=== PATIENT | female | born 1950 | race African-American/Black ===

== ENCOUNTER 2017-09-14 10:50 | Emergency (ER) | payer OTHER ==
[~2017-09-14] VITALS: Ht 154.9 cm; Wt 99.8 kg
[2017-09-14 11:08] VITALS: BP 176/65
[2017-09-14] MEDS ORDERED: KETOROLAC TROMETH 60MG/2ML VIAL IM ONE (13:00)
== END 2017-09-14 13:38 | disposition home or self-care (01) ==
LOC: ER 10:50
DX: M51.16 Intervertebral disc disorders with radiculopathy, lumbar region (principal)
CPT/HCPCS: 93005; 96372; 99283; J1885